=== PATIENT | female | born 1960 | race Caucasian/White ===

== ENCOUNTER → 2019-09-08 | Outpatient (CLI) | payer OTHER | END | disposition home or self-care (01) | LOC: CFH 06:47 | PROVIDERS: ATTEND Internal Medicine Cardiovascular Disease | DX: I21.29 ST elevation (STEMI) myocardial infarction involving other sites (principal); I25.9 Chronic ischemic heart disease, unspecified | CPT/HCPCS: 78452; 93017; 93306; A9502 ==

== ENCOUNTER 2019-10-13 08:59 | Observation (INO) | payer OTHER ==
[~2019-10-13] VITALS: Ht 172.7 cm; Wt 76.4 kg
[2019-10-13] MEDS ORDERED: FLAX1CAP PO (09:39)
[2019-10-13] MEDS ORDERED: ATEN25TA PO (09:39)
[2019-10-13] MEDS ORDERED: LEVO137T2 PO (09:39)
[2019-10-13 09:43] VITALS: BP 144/95
[2019-10-13] MEDS ORDERED: MIDAZOLAM 1 MG/ML, 5ML ONE (10:42)
[2019-10-13] MEDS ORDERED: LIDOCAINE 2%, 20ML ONE (10:42)
[2019-10-13] MEDS ORDERED: FENTANYL PF 100 MCG/2ML ONE ×2 (10:42→21:51)
[2019-10-13] MEDS ORDERED: morphine SULFATE 10 MG/ML, 1ML IVPush ONE ×2 (16:30→18:30)
[2019-10-13] MEDS ORDERED: MORPHINE SULFATE 4 MG/ML, 1ML ONE ×2 (17:00→18:30)
[2019-10-13] MEDS ORDERED: OXYcodone/APAP 5/325MG TABLET PO PRN (18:30)
[2019-10-13] MEDS ORDERED: ACETAMINOPHEN 325 MG TABLET PO PRN ×2 (18:30→21:00)
[2019-10-13] MEDS ORDERED: OMNIPAQUE 350 MG/ML, 100ML BOTTLE ONE (19:10)
[2019-10-13] MEDS ORDERED: PROTAMINE SULFATE 10 MG/ML, 5ML ONE (20:04)
[2019-10-13] MEDS ORDERED: HEPARIN 1,000 UNITS/ML, 30ML ONE ×2 (20:04→20:29)
[2019-10-13] MEDS ORDERED: THROMBIN 5,000 UNIT VIAL TP ONE ×2 (20:04→20:55)
[2019-10-13] MEDS ORDERED: BACITRACIN 50,000 UNIT ONE (20:04)
[2019-10-13 20:09] VITALS: BP 148/90
[2019-10-13] MEDS ORDERED: CHLORHEXIDINE 15 ML UDC ONE (20:21)
[2019-10-13] MEDS ORDERED: BUPIVACAINE/EPI 0.5% 1:200K IM ONE (20:51)
[2019-10-13] MEDS ORDERED: BUPIVACAINE/EPI 0.5% 1:200K ONE (20:53)
[2019-10-13] MEDS ORDERED: HEPARIN 1,000 UNITS/ML, 30ML IVPush ONE (20:54)
[2019-10-13] MEDS ORDERED: BACITRACIN 50,000 UNIT IRRIG ONE (20:55)
[2019-10-13] MEDS ORDERED: FENTANYL PF 100 MCG/2ML IV PRN (21:00)
[2019-10-13] MEDS ORDERED: MEPERIDINE/PF 25MG/0.5ML IVPush PRN (21:00)
[2019-10-13] MEDS ORDERED: OXYcodone 5 MG/5 ML ORAL.SOL UDC PO PRN (21:00)
[2019-10-13] MEDS ORDERED: hydrALAzine 20 MG/ML, 1ML IV PRN (21:00)
[2019-10-13] MEDS ORDERED: PROMETHAZINE 25 MG/ML, 1ML IVPush PRN (21:00)
[2019-10-13] MEDS ORDERED: EPHEDRINE 50 MG/ML, 1ML IVPush PRN (21:00)
[2019-10-13] MEDS ORDERED: LABETALOL 5MG/ML, 20ML IV PRN (21:00)
[2019-10-13] MEDS ORDERED: HYDROmorphone 1 MG/ML, 1ML INJ IVPush PRN (21:00)
[2019-10-13] MEDS ORDERED: ONDANSETRON 2MG/ML, 2ML IVPush PRN (21:00)
[2019-10-13] MEDS ORDERED: PLEASE ENTER ALLERGIES MC SCH (21:30)
[2019-10-13] MEDS ORDERED: ONDANSETRON 2MG/ML, 2ML ONE (21:45)
[2019-10-13] MEDS ORDERED: ACETAMINOPHEN 650 MG/20.3 ML UDC ONE (21:51)
[2019-10-13] MEDS ORDERED: OXYcodone 5 MG/5 ML ORAL.SOL UDC ONE (21:51)
[2019-10-13 22:32] VITALS: BP 133/73
[2019-10-13] MEDS ORDERED: ONDANSETRON 2MG/ML, 2ML IV PRN (23:00)
[2019-10-13] MEDS ORDERED: morphine SULFATE 10 MG/ML, 1ML IV PRN (23:00)
[2019-10-13] MEDS: POTASSIUM CHLORIDE 20 MEQ in LACTATED RINGERS 1,000 ML IV SCH (23:41)
[2019-10-13] MEDS: CEFOTETAN PMX 1GM/50ML 50 ML IVPB SCH (23:41)
[2019-10-14 01:52] VITALS: BP 119/75
[2019-10-14] MEDS: OXYcodone/APAP 5/325MG TABLET PO PRN ×3 (06:20→20:49)
[2019-10-14 07:28] VITALS: BP 121/75
[2019-10-14] MEDS: LEVOTHYROXINE 137 MCG TABLET PO SCH (11:29)
[2019-10-14] MEDS: ATENOLOL 50 MG TABLET PO SCH (11:29)
[2019-10-14] MEDS: CEFOTETAN PMX 1GM/50ML 50 ML IVPB SCH (11:29)
[2019-10-14 11:34] LABS: BASOPHILS # (AUTO) 0.02 x10^3/uL (0-0.1); BASOPHILS % (AUTO) 0 % (0-1); EOSINOPHILS # (AUTO) 0.04 x10^3/uL (0-0.4); EOSINOPHILS % (AUTO) 1 % (1-7); LYMPHOCYTES # (AUTO) 0.93 x10^3/uL (1-3.4); LYMPHOCYTES % (AUTO) 10 % (22-44); MD NO; MEAN CORPUSCULAR HEMOGLOBIN 33.6 pg (27.0-34.8); MEAN CORPUSCULAR HGB CONC 32.6 g/dL (32.4-35.8); MEAN PLATELET VOLUME 7.9 fL (7.4-10.4); MONOCYTES # (AUTO) 0.45 x10^3/uL (0.2-0.8); MONOCYTES % (AUTO) 5 % (2-9); NEUTROPHILS # (AUTO) 8.04 x10^3/uL (1.8-6.8); NEUTROPHILS % (AUTO) 85 % (42-75); PLATELET COUNT 181 x10^3/uL (130-400); RED CELL DISTRIBUTION WIDTH 13.6 % (9.6-15.2)
[2019-10-14 14:02] VITALS: BP 168/94
[2019-10-14] MEDS: POTASSIUM CHLORIDE 20 MEQ in LACTATED RINGERS 1,000 ML IV SCH (14:05)
[2019-10-14 18:47] VITALS: BP 123/82
[2019-10-14] MEDS ORDERED: CEFAZOLIN 1,000 MG ONE (20:36)
[2019-10-14] MEDS ORDERED: DEXAMETHASONE 4 MG/ML, 1ML ONE (20:36)
[2019-10-14] MEDS ORDERED: SUCCINYLCHOLINE 20 MG/ML, 10ML ONE (20:36)
[2019-10-14] MEDS ORDERED: PROPOFOL 10 MG/ML, 20ML ONE (20:36)
[2019-10-14] MEDS ORDERED: ONDANSETRON 2MG/ML, 2ML ONE (20:36)
[2019-10-15] MEDS: POTASSIUM CHLORIDE 20 MEQ in LACTATED RINGERS 1,000 ML IV SCH ×3 (00:04→22:55)
[2019-10-15 00:38] VITALS: BP 122/68
[2019-10-15] MEDS: OXYcodone/APAP 5/325MG TABLET PO PRN ×4 (00:59→20:19)
[2019-10-15] MEDS: ATENOLOL 50 MG TABLET PO SCH (06:26)
[2019-10-15] MEDS: LEVOTHYROXINE 137 MCG TABLET PO SCH (06:26)
[2019-10-15 07:09] VITALS: BP 146/78
[2019-10-15 14:10] VITALS: BP 130/72
[2019-10-15] MEDS ORDERED: DOCUSATE 100 MG CAPSULE PO PRN (15:00)
[2019-10-15] MEDS ORDERED: POLYETHYLENE GLYCOL 17 GM PACKET PO PRN (15:00)
[2019-10-15 20:23] VITALS: BP 157/66
[2019-10-16] MEDS: OXYcodone/APAP 5/325MG TABLET PO PRN ×2 (00:33→06:38)
[2019-10-16 00:50] VITALS: BP 161/77
[2019-10-16 05:49] VITALS: BP 152/76
[2019-10-16] MEDS: LEVOTHYROXINE 137 MCG TABLET PO SCH (05:50)
[2019-10-16] MEDS: ATENOLOL 50 MG TABLET PO SCH (05:51)
[2019-10-16 08:06] VITALS: BP 133/73
[2019-10-16 10:24] LABS: BASOPHILS # (AUTO) 0.01 x10^3/uL (0-0.1); BASOPHILS % (AUTO) 0 % (0-1); EOSINOPHILS % (AUTO) 2 % (1-7); LYMPHOCYTES # (AUTO) 1.11 x10^3/uL (1-3.4); LYMPHOCYTES % (AUTO) 25 % (22-44); MD NO; MEAN CORPUSCULAR HEMOGLOBIN 34.2 pg (27.0-34.8); MEAN CORPUSCULAR HGB CONC 32.9 g/dL (32.4-35.8); MEAN CORPUSCULAR VOLUME 103.9 fL (80-100); MEAN PLATELET VOLUME 7.7 fL (7.4-10.4); MONOCYTES # (AUTO) 0.42 x10^3/uL (0.2-0.8); MONOCYTES % (AUTO) 9 % (2-9); NEUTROPHILS # (AUTO) 2.77 x10^3/uL (1.8-6.8); NEUTROPHILS % (AUTO) 63 % (42-75); PLATELET COUNT 152 x10^3/uL (130-400); RED BLOOD COUNT 3.23 x10^6/uL (3.82-5.3); RED CELL DISTRIBUTION WIDTH 13.5 % (9.6-15.2)
[2019-10-16 10:33] LABS: ALBUMIN 3.7 g/dL (3.4-5.0); ANION GAP 8 mmol/L (5-15); CALCIUM 9.1 mg/dL (8.5-10.1); CHLORIDE 105 mmol/L (98-107)
[2019-10-16 10:34] LABS: CREATININE 0.73 mg/dL (0.55-1.02)
== END 2019-10-16 14:24 | disposition home or self-care (01) ==
LOC: CACL 08:59 → ORIP 18:24 → 5SO 19:23 → DCLOUNGE 10-16 14:16
PROVIDERS: ADMIT Internal Medicine Cardiovascular Disease; ATTEND Internal Medicine Cardiovascular Disease
DX: Z03.818 Encounter for observation for suspected exposure to other biological agents ruled out (principal); T81.718A Complication of other artery following a procedure, not elsewhere classified, initial encounter; I72.3 Aneurysm of iliac artery; I72.8 Aneurysm of other specified arteries; I25.10 Atherosclerotic heart disease of native coronary artery without angina pectoris; I10 Essential (primary) hypertension; E03.9 Hypothyroidism, unspecified
CPT/HCPCS: 36415; 74174; 76770; 80048; 82040; 85025; 87635; 93458; 93926; 96361; 96365; 96366; 96375; 96376; 99156; C1729; C1769; C1894; G0378; J0330; J0690; J1100; J1644; J2250; J2270; J2405; J2704; J2720; J3010; J3480; J3490; J7120; Q9967

== ENCOUNTER → 2020-02-16 | Outpatient (CLI) | payer OTHER ==
[~2020-02-16] MED LIST: ATEN25TA PO; FLAX1CAP PO; LEVO137T2 PO
== END | disposition home or self-care (01) ==
LOC: STAR 09:01
PROVIDERS: ATTEND Orthopaedic Surgery
DX: Z01.812 Encounter for preprocedural laboratory examination (principal); Z20.828 Contact with and (suspected) exposure to other viral communicable diseases; G56.01 Carpal tunnel syndrome, right upper limb; R94.31 Abnormal electrocardiogram [ECG] [EKG]
CPT/HCPCS: 87635; 93005

== ENCOUNTER 2020-02-21 08:33 | Day surgery (SDC) | payer OTHER ==
[~2020-02-21] VITALS: Ht 172.7 cm; Wt 75.9 kg
[2020-02-21 09:07] VITALS: BP 135/77
[2020-02-21] MEDS ORDERED: BUPIVACAINE/PF 0.5% ONE (09:28)
[2020-02-21] MEDS ORDERED: LIDOCAINE/PF 1%, 30ML ONE (09:28)
[2020-02-21] MEDS ORDERED: LACTATED RINGERS 1,000 ML IV SCH (09:30)
[2020-02-21] MEDS ORDERED: CHLORHEXIDINE 15 ML UDC MM ONE (09:30)
[2020-02-21] MEDS ORDERED: MIDAZOLAM 1 MG/ML, 2ML ONE (09:36)
[2020-02-21] MEDS ORDERED: FENTANYL PF 100 MCG/2ML ONE (09:36)
[2020-02-21] MEDS ORDERED: ACETAMINOPHEN 325 MG TABLET PO PRN (10:00)
[2020-02-21] MEDS ORDERED: FENTANYL PF 100 MCG/2ML IV PRN (10:00)
[2020-02-21] MEDS ORDERED: PROMETHAZINE 25 MG/ML, 1ML IVPush PRN (10:00)
[2020-02-21] MEDS ORDERED: OXYcodone 5 MG/5 ML ORAL.SOL UDC PO PRN (10:00)
[2020-02-21] MEDS ORDERED: PROPOFOL 10 MG/ML, 20ML ONE (10:30)
[2020-02-21] MEDS ORDERED: KETOROLAC 30 MG/1 ML ONE (11:11)
[2020-02-21] MEDS ORDERED: ONDANSETRON 2MG/ML, 2ML ONE (11:11)
== END 2020-02-21 11:20 | disposition home or self-care (01) ==
LOC: OUT 08:33 → EDSTATUS 12:45
PROVIDERS: ATTEND Orthopaedic Surgery
DX: G56.03 Carpal tunnel syndrome, bilateral upper limbs (principal); I10 Essential (primary) hypertension; E78.5 Hyperlipidemia, unspecified; E07.9 Disorder of thyroid, unspecified; Z79.890 Hormone replacement therapy; Z79.891 Long term (current) use of opiate analgesic; Z79.899 Other long term (current) drug therapy; Z87.891 Personal history of nicotine dependence; Z88.0 Allergy status to penicillin; Z91.040 Latex allergy status; Z82.61 Family history of arthritis; Z82.49 Family history of ischemic heart disease and other diseases of the circulatory system
CPT/HCPCS: 64721; J1885; J2250; J2405; J2704; J3010; J7120